=== PATIENT | female | born 1935 | race Caucasian/White ===

== ENCOUNTER 2022-01-26 10:27 | Day surgery (SDC) | payer OTHER, SELFPAY ==
[2022-01-18 10:35] VITALS: BMI 31.8
--- NOTE | 2022-01-25 12:26 | P.CONAN_ITS ---
Documented by User: Isha Reyna NP 01/25/22 12:32 HPI - Anesthesia Eval Consult details Narrative: 86yo F for Left AV Fistula Creation, Superficialization ESRD with HD TuThSat (will adjust to have HD 01/25/2022) [facility] Past Medical History Medical History (Updated 01/18/22 @ 10:37 by Rachna Escamilla, GURPREET) Anemia CHF (congestive heart failure) Diabetic neuropathy Diverticulitis End stage renal disease Endometrial carcinoma HTN (hypertension) Hypothyroid IBS (irritable bowel syndrome) Sleep apnea Type 2 diabetes mellitus Uterine cancer Surgical History Surgical History (Updated 01/18/22 @ 10:37 by Rachna Escamilla, GURPREET) H/O colonoscopy Hx of appendectomy Hx of cholecystectomy Hx of hysterectomy S/P arteriovenous (AV) fistula creation Social History Social History (Updated 01/17/22 @ 10:47 by Rachna Escamilla, GURPREET) Patient Tobacco Use Status: Never used Tobacco Use of substances other than those prescribed or required for medical reasons: No Have you been hit, kicked, punched, or otherwise hurt by someone within the past year? If so, by whom?: No Are you DNR?: No Advance Directives Information Provided: Yes (will bring copy DOS) Advance Directives on File: No Recently lost weight without trying: No Eating poorly because of decreased appetite: No Nutrition Risks: Surgical patient >75years Poor oral hygiene: No (upper partial denture) Meds Allergies Allergy/AdvReac Type Severity Reaction Status Date / Time amlodipine Allergy Intermediate edema Verified 01/17/22 10:00 lisinopril AdvReac Intermediate Cough Verified 01/17/22 10:00 [id number] Reductase AdvReac Intermediate itching/restless Verified 12/25 09/14 10:34 Inhibitor leg-myalgias Home Medications Medication Instructions Recorded Confirmed Last Taken Type aspirin 81 mg tablet,delayed 81 mg PO DAILY 01/17/22 01/17/22 Unknown History release bumetanide 2 mg tablet 2 tab PO BID 01/17/22 01/17/22 Unknown History epoetin radha-epbx 20,000 unit/2 mL 20,000 unit subcut 3XW 01/17/22 01/17/22 Unk nown History injection solution ergocalciferol (vitamin D2) 1,250 1,250 mcg PO QWEEK 01/17/22 01/17/22 Unknown History mcg (50,000 unit) capsule fluticasone propionate 50 2 spray intranasal DAILY 01/17/22 01/17/22 Unknown History mcg/actuation nasal spray,suspension isosorbide mononitrate 30 mg 1 tab PO DAILY 01/17/22 01/17/22 Unknown History tablet,extended release 24 hr levothyroxine 100 mcg tablet 100 mcg PO DAILY 01/17/22 01/18/22 Unknown History metolazone 5 mg tablet 5 mg PO DAILY PRN Edema 01/17/22 01/17/22 Unknown History multivitamin 1 tab PO DAILY 01/17/22 01/17/22 Unknown History nifedipine 60 mg tablet,extended 1 tab PO BID 01/17/22 01/17/22 Unknown History release ubiquinol 100 mg-pyrroloquinoline 2 cap PO BEDTIME 01/17/22 01/17/22 Unknown History quinone (coenzyme PQQ) 10 mg capsule Exam Exam Date and Time: January 25, 2022 1226 Height,Weight and Vital Signs: Height 5 ft 6 in Weight 89.358 kg Narrative Narrative: EKG 10/2021 NSR with normal axis intervals and no significant ST-T wave changes ECHO 08/2021 LV normal in size LV wall thickness is normal EF 55-60% No definite WMA Diastolic function was indeterminate LA normal in size RV dilated. Function preserved RA is normal in size PASP 70-80mmHg IVC dilated. Inspiratory collapse is blunted Trace pericardial effusion cannot be excluded Assessment and Plan Assessment Anesthesia Assessment: Chart Reviewed Documented by User: Vicki Barroso MD 01/26/22 12:35 [facility] Past Medical History Medical History (Updated 01/18/22 @ 10:37 by Rachna Escamilla RN) Anemia CHF (congestive heart failure) Diabetic neuropathy Diverticulitis End stage renal disease Endometrial carcinoma HTN (hypertension) Hypothyroid IBS (irritable bowel syndrome) Sleep apnea Type 2 diabetes mellitus Uterine cancer Family History Family history of problems with anesthesia: No Surgical History Surgical History (Updated 01/18/22 @ 10:37 by Rachna Escamilla RN) H/O colonoscopy Hx of appendectomy Hx of cholecystectomy Hx of hysterectomy S/P arteriovenous (AV) fistula creation History of Problems with Anesthesia: No Social History Social History (Updated 01/17/22 @ 10:47 by Rachna Escamilla RN) Patient Tobacco Use Status: Never used Tobacco Use of substances other than those prescribed or required for medical reasons: No Have you been hit, kicked, punched, or otherwise hurt by someone within the past year? If so, by whom?: No Are you DNR?: No Advance Directives Information Provided: Yes (will bring copy DOS) Advance Directives on File: No Recently lost weight without trying: No Eating poorly because of decreased appetite: No Nutrition Risks: Surgical patient >75years Poor oral hygiene: No (upper partial denture) Meds Allergies Allergy/AdvReac Type Severity Reaction Status Date / Time amlodipine Allergy Intermediate edema Verified 01/17/22 10:00 lisinopril AdvReac Intermediate Cough Verified 01/17/22 10:00 [id number] Reductase AdvReac Intermediate itching/restless Verified 01/18/22 10:34 Inhibitor leg-myalgias Home Medications Medication Instructions Recorded Confirmed Last Taken Type aspirin 81 mg tablet,delayed 81 mg PO DAILY 01/17/22 01/17/22 Unknown History release bumetanide 2 mg tablet 2 tab PO BID 01/17/22 01/17/22 Unknown History epoetin radha-epbx 20,000 unit/2 mL 20,000 unit subcut 3XW 01/17/22 01/17/22 Unknown History injection solution ergocalciferol (vitamin D2) 1,250 1,250 mcg PO QWEEK 01/17/22 01/17/22 Unknown History mcg (50,000 unit) capsule fluticasone propionate 50 2 spray intranasal DAILY 01/17/22 01/17/22 Unknown History mcg/actuation nasal spray,suspension isosorbide mononitrate 30 mg 1 tab PO DAILY 01/17/22 01/17/22 Unknown History tablet,extended release 24 hr levothyroxine 100 mcg tablet 100 mcg PO DAILY 01/17/22 01/18/22 Unknown History metolazone 5 mg tablet 5 mg PO DAILY PRN Edema 01/17/22 01/17/22 Unknown History multivitamin 1 tab PO DAILY 01/17/22 01/17/22 Unknown History nifedipine 60 mg tablet,extended 1 tab PO BID 01/17/22 01/17/22 Unknown History release ubiquinol 100 mg-pyrroloquinoline 2 cap PO BEDTIME 01/17/22 01/17/22 Unknown History quinone (coenzyme PQQ) 10 mg capsule Exam Height,Weight and Vital Signs: Height 5 ft 6 in Weight 89.358 kg Vital Signs Temp Pulse Resp BP Pulse Ox O2 Del Method 01/26/22 11:50 98.3 F 63 16 128/53 L 97 Room Air Pertinent Lab Results Pertinent Lab Results: Lab Results 01/26/22 Range/Units 10:45 Sodium 140 (135-145) mmol/L Potassium 3.6 (3.3-5.1) mmol/L Chloride 99 (96-108) mmol/L Carbon Dioxide 29 (22-29) mmol/L Anion Gap 16 (12-20) Narrative Narrative: EKG 10/2021 NSR with normal axis intervals and no significant ST-T wave changes ECHO 08/2021 LV normal in size LV wall thickness is normal EF 55-60% No definite WMA Diastolic function was indeterminate LA normal in size RV dilated. Function preserved RA is normal in size PASP 70-80mmHg IVC dilated. Inspiratory collapse is blunted Trace pericardial effusion cannot be excluded ?Rhythm on monitor. 12 lead ekg obtained EKG 01/26/2022: SR 66 with first degree AV block. Septal infarct, age undetermined Airway Mallampati Class: III TM Dist: >3cm Neck ROM: Full Denture: Upper Loose/Missing/Broken Teeth: Yes (Denture top. Own teeth bottom- denies broken or loose teeth) Heart: RRR+ murmur Lungs: CTAB Assessment and Plan Assessment Anesthesia Assessment: Anesthesia Plan Discussed Final Anesthetic Review Family History of Problems with Anesthesia: No History of Problems with Anesthesia: No NPO: Yes ASA Class: IV Final Preanesthetic Review: No Changes in Pt Med Stat, Meds/Allgs Chart Reviewed, Consent Obtained/Reviewed and Anes Risks/Benef Reviewed Patient Risk: High Procedure Risk: Low Assessment/Block/Sedation in SS: Assess/Block/Sedation-SS Anesthetic Plan Anesthetic Plan: MAC: Disposition: Standard PACU
--- NOTE | 2022-01-26 | ECG_ITS ---
Test Reason : preop Blood Pressure : / mmHG Vent. Rate : 064 BPM Atrial Rate : 064 BPM P-R Int : 328 ms QRS Dur : 090 ms QT Int : 462 ms P-R-T Axes : 081 078 082 degrees QTc Int : 476 ms Sinus rhythm with 1st degree A-V block Nonspecific ST abnormality Inferior leads Lateral leads Abnormal ECG No previous ECGs available Referred By: Vicki Barroso Electronically Signed By:MILES BRAUN MD
[2022-01-26 11:07] LABS: Anion Gap 16 (12-20); Carbon Dioxide 29 mmol/L (22-29); Chloride 99 mmol/L (96-108); Potassium 3.6 mmol/L (3.3-5.1); Sodium 140 mmol/L (135-145)
[2022-01-26 11:50] VITALS: BP 128/53; PULSE 63; RESP 16; TEMP 36.8; O2SAT 97
[2022-01-26] MEDS: 0.9 % Sodium Chloride 1,000 ML 50 ML IVCONT (11:50)
[2022-01-26 15:00] VITALS: BP 132/41; PULSE 59; RESP 16; TEMP 36.6; O2SAT 100
--- NOTE | 2022-01-26 15:12 | P.OP_ITS ---
Operative Note Operative Note Date of Service: 01/26/22 Narrative: Pre-op Dx: ESRD Post-op Dx: ESRD Operation: Left arm superficialization of cephalic vein of AV fistula Surgeon: Jaylan Courtney MD Anesthesia: MAC, local Procedure: The patient was placed on the OR table in a supine position. Lower extremity compression devices were placed. The anesthesiologist administered the pre- operative antibiotic. An US of the upper arm cephalic and basilic veins was performed on the left arm. After successful induction of MAC anesthesia, the left arm was prepped and draped in a sterile fashion. A surgical timeout took place. Local anesthetic was used. An incision was made over the upper arm cephalic vein, just above the elbow. The Bovie electrocautery was used to dissect through the subcutaneous tissue. The cephalic vein was isolated and skeletonized. Vessel loops were placed around it. The incision was extended along the cephalic vein of the upper arm, up to the shoulder. The entire cephalic vein was dissected out. Branches were ligated and divided with 3-0 silk ties. Hemostasis was maintained. The deep subdermal layer of the incision was re-approximated using a running 3-0 Vicryl suture. A skin flap was created on the lateral part of the incision and some fat was removed. The subdermal layer was brought together with interrupted 3-0 Vicryl stitches. The incision was reapproximated with a running 4-0 Monocryl stitch. Surgical glue was applied. The hand was well perfused. The patient tolerated the procedure well. All instrument, sponge and needle counts were correct at the end of the case.
[2022-01-26 15:15] VITALS: BP 149/52; PULSE 62; RESP 16; O2SAT 96
[2022-01-26 15:30] VITALS: BP 145/50; PULSE 60; RESP 16; TEMP 36.6; O2SAT 96
== END 2022-01-26 15:23 | disposition home or self-care (01) ==
PROVIDERS: Nurse Practitioner; PCP Internal Medicine; Visit Provider Transplant Surgery
PROC: (CPT 36832; principal; 2022-01-26 13:40)
DX: Z45.2 Encounter for adjustment and management of vascular access device (principal); E11.22 Type 2 diabetes mellitus with diabetic chronic kidney disease; I13.2 Hypertensive heart and chronic kidney disease with heart failure and with stage 5 chronic kidney disease, or end stage renal disease; I50.9 Heart failure, unspecified; N18.6 End stage renal disease; E11.40 Type 2 diabetes mellitus with diabetic neuropathy, unspecified; R94.31 Abnormal electrocardiogram [ECG] [EKG]; Z99.2 Dependence on renal dialysis; G47.33 Obstructive sleep apnea (adult) (pediatric); Z85.42 Personal history of malignant neoplasm of other parts of uterus; Z79.51 Long term (current) use of inhaled steroids; Z79.82 Long term (current) use of aspirin; Z79.899 Other long term (current) drug therapy; Z88.8 Allergy status to other drugs, medicaments and biological substances; Z90.49 Acquired absence of other specified parts of digestive tract
CPT/HCPCS: 36832; 36415; 80051; 93005; J0690; J1170; J3370